=== PATIENT | male | born 2000 | race Two or more races ===

== ENCOUNTER 2025-08-13 10:31 | Emergency (ER) | payer MEDICAID, SELFPAY ==
[2025-08-13 10:32] VITALS: BMI 27.4
--- NOTE | 2025-08-13 10:47 | PD.EDANIML ---
ED Animal Bite RME/HPI General Chief Complaint: Animal Bite Stated Complaint: DOG BITE BILAT HANDS Time Seen by Provider: 08/13/25 10:47 Arrival date/time: 08/13/25 10:31 RME / HPI RME / HPI narrative: 24 year old male with no stated medical history presents to the ED for evaluation of dog bites to bilateral hands. Patient states he owns a boxer and had brought home a reich. Reportedly the dogs began fighting and he attempted breaking up the fight, resulting in being bit on both hands. Patient states both dogs are up to date with their vaccinations. No other injuries or complaints reported. Related Data Previous Rx's ?Medication ?Instructions ?Recorded amoxicillin 500 mg-potassium 1 tab PO BID #14 tabs 08/13/25 clavulanate 125 mg tablet Allergies Allergy/AdvReac Type Severity Reaction Status Date / Time No Known Allergies Allergy Verified 08/13/25 10:34 Review of Systems Review of Systems Systems Reviewed: All systems reviewed, normal except as documented Past Medical History Past Medical History RESPIRATORY: Positive Asthma GENITOURINARY: Positive Renal Disease Social History SMOKING STATUS: Never smoker SUBSTANCE USE: does not use ED Exam Narrative Physical exam: GENERAL APPEARANCE:? alert and oriented x 4, well-developed, well-nourished, no acute distress HEENT: normocephalic, atraumatic NECK: supple LUNGS: no respiratory distress, normal effort HEART: good peripheral perfusion ABDOMEN: non distended EXTREMITIES:?The right hand has a single puncture wound to dorsum of hand, a 1.5cm laceration to base of palm. The left hand has an irregular shallow laceration to the fifth finger laterally. NEUROLOGIC: awake; alert and oriented x4; cranial nerves II-XII grossly intact PSYCHIATRIC:? appropriate mood and affect SKIN: warm, dry, normal color; no rashes Course Course Course Narrative: The hand xrays are both negative for fracture or foreign bodies. The 1.5cm palmar laceration was approximated with two holly. The patient was advised to keep the wound clean and monitor for swelling. Patient is amenable to discharge. Quality Measures none Orders Category Date Time Status XR hand comp LT min 3V Stat Exams 08/13/25 10:47 Completed XR hand comp RT min 3V Stat Exams 08/13/25 10:47 Completed Amoxicillin/Pot Clav [Augmentin] Med 08/13/25 10:48 Discontinued 500 mg PO X1 ONE Vital Signs Vital signs: Vital Signs Temperature 98.6 F 08/13/25 10:49 Pulse Rate 84 08/13/25 10:49 Respiratory Rate 16 08/13/25 10:49 Blood Pressure 145/62 H 08/13/25 10:49 Pulse Oximetry (%) 98 08/13/25 10:49 Oxygen Delivery Method Room Air 08/13/25 10:49 Pulse ox is 98% on room air which is adequate. PROCEDURES: Laceration Laceration 1: Site: hand Side (If applicable): left Size (cm): 1.5 Description: irregular Depth: simple, single layer Pre-repair: wound explored and irrigated extensively Skin layer closed with: other (staple) Animal Bite MDM Narrative MDM Narrative:: Candy Cartwright am scribing for and in the presence of Dr. Ghosh. Patient data External records reviewed:: [facility] previous records Clinical information provided by:: patient Social determinants that could affect healthcare access:: none Patient has the following chronic illnesses:: None How is presenting disease/condition affected by chronic disease/condition?: no chronic disease Evaluation data The following diagnostics were reviewed and interpreted by me:: radiology exam(s) Lab and/or radiology exams considered but not ordered:: None Interpretation Summary: Ordering Physician: Tammy Ghosh MD Date of Service: 08/13/25 Procedure(s): XR hand comp LT min 3V Accession Number(s): [id number] cc: Eloy Whatley MD; Yehuda Barnes MD; Tammy Ghosh MD~ Examination: Hand, left 3 views Technique: Hand AP, oblique, lateral 3 views Date and time of exam: August 13, 2025, 10:54 a.m. INDICATIONS: Dog bite to the hand today hand pain. FINDINGS: Adequate bone density. No acute fracture. No foreign body IMPRESSION: No opaque foreign body Dictated By: Yehuda Barnes MD Signed By: <Electronically signed by Yehuda Barnes MD in [place]> 08/13/25 1138 Ordering Physician: Tammy Ghosh MD Date of Service: 08/13/25 Procedure(s): XR hand comp RT min 3V Accession Number(s): [id number] cc: Eloy Whatley MD; Yehuda Barnes MD; Tammy Ghosh MD~ Examination: Hand, right 3 views Technique: Hand AP, oblique, lateral 3 views Date and time of exam: August 13, 2025, 1054 hours INDICATIONS: Dog bite today with hand pain FINDINGS: Adequate bone density. No acute fracture No foreign body IMPRESSION: No opaque foreign body Dictated By: Yehuda Barnes MD Signed By: <Electronically signed by Yehuda Barnes MD in [place]> 08/13/25 1139 Medications / Prescriptions Medications or Prescriptions considered but not ordered:: None Medication administrations:: Medication Administration History Discontinued Medications Amoxicillin/Clavulanate Potassium (Amoxicillin/Pot Clav 500 Mg Tablet) 500 mg PO X1 ONE Stop: 08/13/25 10:49 Last Admin: 08/13/25 11:16 Dose: 500 mg Documented By: ION See above Consultations Consultation(s) initiated? (list below): No Diagnosis Most likely diagnosis given after review of the tests above:: Dog bite of hand Admission Indicated Admission indicated?: not indicated Admission Request Was there a request for admission?: No Disposition Plan Disposition Plan: Discharge Discharge Attestation Discharge Attestation: The patient and all family members were given an opportunity to ask questions and understood the discharge instructions. Discharge instructions specifically effects, indications for sooner follow up or return to the emergency department, and the expected course of current diagnosis. Patient condition: Stable Discharge Plan Plan Patient Disposition: HOME (Self Care) Prescriptions/Referrals Prescriptions/Med Rec: New amoxicillin-pot clavulanate 500-125 mg tablet 1 tab PO BID Qty: 14 0RF Problem List Clinical Impression: Dog bite of hand Patient/Caregiver Discharge Instructions Education Materials: ED Dog Bite, ED Laceration, Hand: All Closures Print Language: Peruvian Stand Alone Forms: Natacha Award Info., Patient Portal Info Letter
[2025-08-13 10:49] VITALS: BP 145/62; PULSE 84; RESP 16; TEMP 37; O2SAT 98
[2025-08-13] MEDS: AMOXICILLIN/POT CLAV 500 MG TABLET PO (11:16)
== END 2025-08-13 13:50 | disposition home or self-care (01) ==
PROVIDERS: Emergency Provider Emergency Medicine; PCP Family Medicine
DX: S61.451A Open bite of right hand, initial encounter (principal); S61.452A Open bite of left hand, initial encounter; W54.0XXA Bitten by dog, initial encounter
CPT/HCPCS: 12001; 73130; 99281; A9270